=== PATIENT | female | born 1935 | race Two or more races ===

== ENCOUNTER → 2018-05-12 | Outpatient (CLI) | payer OTHER | LOC: BRMIMAGING 11:45 | PROVIDERS: ATTEND Internal Medicine | DX: M25.561 Pain in right knee (principal); M25.562 Pain in left knee; M85.851 Other specified disorders of bone density and structure, right thigh | CPT/HCPCS: 73562-PO ==

== ENCOUNTER → 2018-11-04 | Outpatient (CLI) | payer OTHER | LOC: BRMIMAGING 15:29 | PROVIDERS: ATTEND Internal Medicine | DX: M17.0 Bilateral primary osteoarthritis of knee (principal) | CPT/HCPCS: 73562-PO ==